=== PATIENT | female | born 1980 | race Hispanic/Latino ===

== ENCOUNTER 2017-09-18 13:26 | Emergency (ER) | payer BC ==
[2017-09-18] MEDS ORDERED: Fluorescein Opthalmic Strip ONE (15:35)
[2017-09-18] MEDS ORDERED: Proparacaine 0.5% Opth 15 ML BOT ONE (15:35)
== END 2017-09-18 16:20 | disposition home or self-care (01) ==
LOC: ERS 13:26
DX: S05.01XA Injury of conjunctiva and corneal abrasion without foreign body, right eye, initial encounter (principal); E78.5 Hyperlipidemia, unspecified; I10 Essential (primary) hypertension; X58.XXXA Exposure to other specified factors, initial encounter
CPT/HCPCS: 99283

== ENCOUNTER 2017-11-23 15:48 | Outpatient (CLI) | payer BC ==
--- NOTE | 2017-11-23 15:59 | RAD ---
LEFT HAND THIRD DIGIT: Date: 11/23/17 CLINICAL HISTORY: Splinter. FINDINGS: No fracture or dislocation of the third digit of left hand. No obvious, radiopaque foreign body is se en within the third digit soft tissues. IMPRESSION: No acute osseous abnormality or evidence of radiopaque foreign body involving the third digit of left hand. If there is persistent concern for a splinter, particularly if this is of a radiolucent substance suc h as wood, consider localized ultrasound for further evaluation. POS: MYRA
== END 2017-11-23 15:49 | disposition home or self-care (01) ==
LOC: RAD-FRANK 15:48
PROVIDERS: ATTEND Nurse Practitioner Family
DX: S60.459A Superficial foreign body of unspecified finger, initial encounter (principal); L08.9 Local infection of the skin and subcutaneous tissue, unspecified
CPT/HCPCS: 87070; 87205

== ENCOUNTER 2018-10-10 06:32 | Outpatient (CLI) | payer BC ==
--- NOTE | 2018-10-10 08:36 | ULT ---
ULTRASOUND ABDOMEN COMPLETE DATE: 10/10/18 INDICATION: Hepatitis C. TECHNIQUE: Lindo-scale ultrasound evaluation of the liver, gallbladder, spleen, pancreas, common bile duct, kidne ys, abdominal aorta, and inferior vena cava (IVC). FINDINGS: No focal hepatic lesion. Patient is status post cholecystectomy. Common duct is normal for post joy cystectomy patient at 6.0 mm. Mild prominence of the left renal pelvis is present. There is no right hydronephrosis. Pancreas is partially obscured from view by bowel content limiting assessment. No sig nificant abnormality of the visualized abdominal aorta. Spleen is unremarkable. IMPRESSION: 1. Status post cholecystectomy. 2. Mild prominence of the left renal pelvis. 3. Otherwise, no acute process is visualized. POS: TPC
== END 2018-10-10 06:33 | disposition home or self-care (01) ==
LOC: BICULT 06:32
PROVIDERS: ATTEND Nurse Practitioner Family
DX: B19.20 Unspecified viral hepatitis C without hepatic coma (principal); K76.0 Fatty (change of) liver, not elsewhere classified; E53.8 Deficiency of other specified B group vitamins; E78.1 Pure hyperglyceridemia; R80.9 Proteinuria, unspecified; Z90.49 Acquired absence of other specified parts of digestive tract
CPT/HCPCS: 76700

== ENCOUNTER 2019-05-02 09:26 | Outpatient (CLI) | payer BC ==
--- NOTE | 2019-05-02 11:11 | MMO ---
Left Breast MAMMO Unilat Diag DDI LT+DIVYA. CLINICAL HISTORY: Patient is 38 years old and is seen for additional evaluation requested at current screening. The patient has no family history of breast cancer. The patient has no personal history of cancer. VIEWS: The views performed were: left craniocaudal spot compression with tomosynthesis; left mediolateral oblique spot compression with tomosynthesis; and left mediolateral with tomosynthesis. FILMS COMPARED: The present examination has been compared to a prior imaging study performed at [facility] on 05/02/2019. This study has been interpreted with the assistance of computer-aided detection. MAMMOGRAM FINDINGS: focal asymmetry in the left posterior lower breast persists. IMPRESSION: FINDING IN THE LEFT BREAST REQUIRES ADDITIONAL EVALUATION. AN ULTRASOUND EXAM IS RECOMMENDED. THE RESULTS OF THIS EXAM WERE SENT TO THE PATIENT. ACR BI-RADS Category 0 - Incomplete: Need additional imaging evaluation. [facility] will notify the patient of the need for additional imaging services. MAMMOGRAPHY NOTE: 1. A negative mammogram report should not delay a biopsy if a dominant of clinically suspicious mass is present. 2. Approximately 10% to 15% of breast cancers are not detected by mammography. 3. Adenosis and dense breasts may obscure an underlying neoplasm. Reported by: ROSELINE MORGAN MD Electonically Signed: [id number]
--- NOTE | 2019-05-02 12:23 | ULT ---
LEFT BREAST ULTRASOUND: HISTORY: Abnormal mammogram from 04/23/2019. CORRELATION: Mammograms from 04/23/2019 and today. FINDINGS: Sonographic evaluation at the posterior aspect of the 6 o'clock position of the left breast demonstra jacqueline a questionable well circumscribed, nonshadowing solid nodule, measuring about 1 x 0.5 cm, which b lends with the adjacent fibroglandular tissue. IMPRESSION: BI-RADS category 3 - probably benign findings. A follow-up left diagnostic mammogram and ultrasound is recommended in three months. POS: OFF
== END 2019-05-02 09:27 | disposition home or self-care (01) ==
LOC: BICMAMMO 09:26
PROVIDERS: ATTEND Obstetrics & Gynecology
DX: N63.0 Unspecified lump in unspecified breast (principal)
CPT/HCPCS: G0279

== ENCOUNTER 2019-06-17 07:31 | Day surgery (SDC) | payer BC ==
[2019-06-14 12:33] VITALS: BMI 33.1
[~2019-06-17 07:31] MED LIST: FLU VACC QS2019-20(6MOS UP)/PF 60 MCG/0.5 ML SYRINGE IM ONE
[2019-06-17 07:55] LABS: INR-International Normal Ratio 0.9; PTT 48.2 SEC (22.9-36.1); Prothrombin Time 11.7 SEC (12.0-14.7)
[2019-06-17 08:50] VITALS: BP 132/79; TEMP 98.2
[2019-06-17] MEDS ORDERED: FLU VACC QS2019-20(6MOS UP)/PF 60 MCG/0.5 ML SYRINGE IM ONE (09:00)
[2019-06-17] MEDS ORDERED: Midazolam HCl 2 mg/2 ml Vial ONE (09:08)
[2019-06-17] MEDS ORDERED: Fentanyl 100 MCG/2 ML VIAL ONE (09:09)
[2019-06-17] MEDS ORDERED: Sodium Bicarbonate 2.5 MEQ/5 ML VIAL ONE (09:09)
--- NOTE | 2019-06-17 15:48 | ULT ---
Random hepatic biopsy sonographic guided HISTORY: Abnormal liver function tests. FINDINGS: After explaining the procedure and answering all questions, sonographic survey shows safe a pproach to the left liver lobe. Sterile technique, buffered local anesthesia, sonographic guidance, and a subxiphoid approach were used to carefully advance a 17-gauge trocar needle into the left liver lobe. Position confirmed with sonography. A total of 2 18-gauge core biopsy specimens were obtained and eventually submitted to pathology for evaluation. Needle was removed. Patient tolerated the procedure well and was eventually dismissed in good condition. IMPRESSION: Technically successful sonographic guided random hepatic biopsy. Pathology is pending.
== END 2019-06-17 11:15 | disposition home or self-care (01) ==
LOC: ULT 07:31
PROVIDERS: ATTEND Internal Medicine Gastroenterology
PROC: 0FB23ZX Excision of Left Lobe Liver, Percutaneous Approach, Diagnostic (ICD-10-PCS; principal; 2019-06-17)
DX: K76.0 Fatty (change of) liver, not elsewhere classified (principal); K75.9 Inflammatory liver disease, unspecified; J30.2 Other seasonal allergic rhinitis; Z79.899 Other long term (current) drug therapy; Z88.6 Allergy status to analgesic agent
CPT/HCPCS: 47000; 76942; 85610; 85730; 88307; 88313; 90471; 90686; G0008; J2250; J3010

== ENCOUNTER 2019-08-05 14:45 | Outpatient (CLI) | payer BC ==
--- NOTE | 2019-08-05 15:35 | MMO ---
Left Breast MAMMO Unilat Diag DDI LT+DIVYA. CLINICAL HISTORY: Patient is 38 years old and is seen for diagnostic exam. VIEWS: The views performed were: left craniocaudal with tomosynthesis; left mediolateral oblique with tomosynthesis; and left mediolateral with tomosynthesis. FILMS COMPARED: The present examination has been compared to prior imaging studies performed at [facility] on 04/23/2019, and at [facility] on 05/02/2019 and 08/05/2019. This study has been interpreted with the assistance of computer-aided detection. MAMMOGRAM FINDINGS: The breast is heterogeneously dense, which could obscure a lesion on mammography. There has been no significant interval change overall. The asymmetry at posterior inferior left breast mentioned previously is asymmetrical fibroglandular tissue. Previously described nodule at 6 o'clock on prior ultrasound report was fibroglandular tissue. No nodule is found on today's ultrasound. There are no suspicious masses, suspicious calcifications, or new areas of architectural distortion. IMPRESSION: THERE IS NO MAMMOGRAPHIC EVIDENCE OF MALIGNANCY. A ROUTINE FOLLOW-UP MAMMOGRAM IN 1 YEAR IS RECOMMENDED. THE RESULTS OF THIS EXAM WERE SENT TO THE PATIENT. ACR BI-RADS Category 2 - Benign finding MAMMOGRAPHY NOTE: 1. A negative mammogram report should not delay a biopsy if a dominant of clinically suspicious mass is present. 2. Approximately 10% to 15% of breast cancers are not detected by mammography. 3. Adenosis and dense breasts may obscure an underlying neoplasm. Reported by: MARTA MAR MD Electonically Signed: [id number]
--- NOTE | 2019-08-05 15:57 | ULT ---
ULTRASOUND LIMITED LEFT BREAST: Date: 08-05-2019 History: 38-year-old female follow up possible left breast solid nodule. Technique: Focused ultrasound of the 6 o'clock position of the left breast. Comparison: 05-02-2019 FINDINGS: No solid or cystic lesion is identified in this location. No architectural distortion or suspicious s hadowing. What was measured and labelled as a nodule on the previous ultrasound was probably normal f ibroglandular tissue. Today's mammogram results are also negative. IMPRESSION: 1. BIRADS 2 - benign findings. 2. Recommend patient return to routine annual screening mammography, for which she will be due in Apr. POS: OFF
== END 2019-08-05 14:46 | disposition home or self-care (01) ==
LOC: BICMAMMO 14:45
PROVIDERS: ATTEND Obstetrics & Gynecology
DX: R92.2 Inconclusive mammogram (principal)
CPT/HCPCS: G0279

== ENCOUNTER 2021-07-14 10:37 | Outpatient (CLI) | payer BC | END 2021-07-14 10:38 | disposition home or self-care (01) | LOC: BICMAMMO 10:37 | PROVIDERS: ATTEND Nurse Practitioner Family | DX: Z12.31 Encounter for screening mammogram for malignant neoplasm of breast (principal) | CPT/HCPCS: 77063; 77067 ==

== ENCOUNTER 2022-09-23 14:25 | Outpatient (CLI) | payer BC | END 2022-09-23 14:26 | disposition home or self-care (01) | LOC: BICMAMMO 14:25 | PROVIDERS: ATTEND Nurse Practitioner Family | DX: Z12.31 Encounter for screening mammogram for malignant neoplasm of breast (principal); R92.1 Mammographic calcification found on diagnostic imaging of breast | CPT/HCPCS: 77063; 77067 ==

== ENCOUNTER 2024-01-19 08:49 | Outpatient (CLI) | payer BC | END 2024-01-19 08:50 | disposition home or self-care (01) | LOC: MRI 08:49 | PROVIDERS: ATTEND Psychiatry & Neurology Neurology | DX: M48.061 Spinal stenosis, lumbar region without neurogenic claudication (principal); M51.26 Other intervertebral disc displacement, lumbar region; M48.07 Spinal stenosis, lumbosacral region; M47.816 Spondylosis without myelopathy or radiculopathy, lumbar region; M47.817 Spondylosis without myelopathy or radiculopathy, lumbosacral region | CPT/HCPCS: 72158 ==